=== PATIENT | male | born 1955 | race Caucasian/White ===

== ENCOUNTER 2023-02-01 04:20 | Emergency (ER) | payer OTHER, MEDICAID ==
[~2023-02-01] VITALS: Ht 177.8 cm; Wt 86.2 kg
[2023-02-01 04:24] VITALS: BP 132/74; PULSE 112; RESP 18; TEMP 98.6; O2SAT 99
[2023-02-01] MEDS ORDERED: LORazepam 2 MG/ML VIAL ONE (05:47)
== END 2023-02-01 05:37 ==
LOC: MED 04:20
DX: F10.129 Alcohol abuse with intoxication, unspecified (principal); R00.0 Tachycardia, unspecified; Y90.9 Presence of alcohol in blood, level not specified; V89.2XXA Person injured in unspecified motor-vehicle accident, traffic, initial encounter; Y93.89 Activity, other specified; Y92.410 Unspecified street and highway as the place of occurrence of the external cause; Y99.8 Other external cause status
CPT/HCPCS: 70450; 72125; 99284; J2060